=== PATIENT | male | born 1990 | race American Indian/Alaskan Native ===

== ENCOUNTER 2017-05-28 13:08 | Emergency (ER) | payer SELFPAY ==
[2017-05-28 13:40] VITALS: BP 123/84
[2017-05-28] MEDS ORDERED: XYLOCAINE 1% 20 mL INFILTRATI ONE (17:56)
[2017-05-28] MEDS ORDERED: XYLOCAINE 1% MPF 5 mL ONE (18:00)
--- NOTE | 2017-05-28 18:23 | Emergency Department Report ---
- General Chief complaint: Skin/Abscess/Foreign Body Stated complaint: ABSCESS Time Seen by Provider: 05/28/17 17:56 Source: patient Mode of arrival: Ambulatory Limitations: No Limitations - History of Present Illness Initial comments: 26-year-old male no past medical history presents with a boil underneath right armpit for 3 days. Patient denies fevers chills. Visible abscess underlying right axilla. Maximally was sized walnut. States he has had these in the past. Awake alert and oriented 3 not in acute distress. it is painful to palpation. MD complaint: abscess/boil Onset/Timin -: days(s) Location: RUE (underneath right axilla) Severity: moderate Severity scale (0 -10): 7 Quality: aching Consistency: constant Improves with: none Context: none Treatments Prior to Arrival: none - Related Data Previous Rx's Medication Instructions Recorded Last Taken Type Acetaminophen/Codeine [Tylenol 1 tab PO Q6H PRN #2 tab 05/28/17 Unknown Rx /Codeine # 3 tab] Ibuprofen [Motrin] 600 mg PO Q8H PRN #20 tablet 05/28/17 Unknown Rx Sulfamethoxazole/Trimethoprim 1 each PO BID #14 tablet 05/28/17 Unknown Rx [Bactrim DS TAB] Allergies Allergy/AdvReac Type Severity Reaction Status Date / Time No Known Allergies Allergy Unverified 05/28/17 13:40 Abscess Boil HPI - HPI Chief Complaint: Skin/Abscess/Foreign Body Stated Complaint: ABSCESS Time Seen by Provider: 05/28/17 17:56 Home Medications: Previous Rx's Medication Instructions Recorded Last Taken Type Acetaminophen/Codeine [Tylenol 1 tab PO Q6H PRN #2 tab 05/28/17 Unknown Rx /Codeine # 3 tab] Ibuprofen [Motrin] 600 mg PO Q8H PRN #20 tablet 05/28/17 Unknown Rx Sulfamethoxazole/Trimethoprim 1 each PO BID #14 tablet 05/28/17 Unknown Rx [Bactrim DS TAB] Allergies/Adverse Reactions: Allergies Allergy/AdvReac Type Severity Reaction Status Date / Time No Known Allergies Allergy Unverified 05/28/17 13:40 ED Review of Systems ROS: Stated complaint: ABSCESS Other details as noted in HPI Constitutional: denies: chills, fever Eyes: denies: eye pain, eye discharge, vision change ENT: denies: ear pain, throat pain Respiratory: denies: cough, shortness of breath, wheezing Cardiovascular: denies: chest pain, palpitations Endocrine: no symptoms reported Gastrointestinal: denies: abdominal pain, nausea, diarrhea Genitourinary: denies: urgency, dysuria Musculoskeletal: denies: back pain, joint swelling, arthralgia Skin: as per HPI. denies: rash, lesions Neurological: denies: headache, weakness, paresthesias Psychiatric: denies: anxiety, depression Hematological/Lymphatic: denies: easy bleeding, easy bruising ED Past Medical Hx - Past Medical History Previous Medical History?: No - Surgical History Past Surgical History?: No - Social History Smoking Status: Current Every Day Smoker Substance Use Type: None - Medications Home Medications: Home Medications Medication Instructions Recorded Confirmed Last Taken Type Acetaminophen/Codeine [Tylenol 1 tab PO Q6H PRN #2 tab 05/28/17 Unknown Rx /Codeine # 3 tab] Ibuprofen [Motrin] 600 mg PO Q8H PRN #20 tablet 05/28/17 Unknown Rx Sulfamethoxazole/Trimethoprim 1 each PO BID #14 tablet 05/28/17 Unknown Rx [Bactrim DS TAB] ED Physical Exam - General Limitations: No Limitations General appearance: alert, in no apparent distress - Head Head exam: Present: atraumatic, normocephalic - Eye Eye exam: Present: normal appearance - ENT ENT exam: Present: mucous membranes moist - Neck Neck exam: Present: normal inspection - Respiratory Respiratory exam: Present: normal lung sounds bilaterally. Absent: respiratory distress - Cardiovascular Cardiovascular Exam: Present: regular rate, normal rhythm. Absent: systolic murmur, diastolic murmur, rubs, gallop - GI/Abdominal GI/Abdominal exam: Present: soft, normal bowel sounds - Rectal Rectal exam: Present: deferred - Extremities Exam Extremities exam: Present: normal inspection - Back Exam Back exam: Present: normal inspection - Neurological Exam Neurological exam: Present: alert, oriented X3, CN II-XII intact, normal gait - Psychiatric Psychiatric exam: Present: normal affect, normal mood - Skin Skin exam: Present: warm, dry, intact, normal color. Absent: rash - Expanded Skin Exam Expanded Type of lesion: Present: abscess (abscess approximately 3 cm in diameter right axilla) ED Course Vital Signs 05/28/17 13:38 Temperature 98.6 F Pulse Rate 90 Respiratory 16 Rate Blood Pressure 123/84 O2 Sat by Pulse 100 Oximetry - I & D Right Shoulder Type of Procedure: Simple Site: right axilla Blade Size: 11 I & D Procedure: betadine prep, gauze wick placed Progress: Good local anesthesia achieved using lidocaine. Single stab incision made with mild amount appear to drainage. Manual decompression of abscess. Minimal bleeding, procedure tolerated well. Approximately 3 inches of quarter-inch gauze placed and swelling. With 4 x 4 gauze afterward. ED Medical Decision Making - Medical Decision Making A/P: Right axillary abscess 1-Motrin when necessary 2-course of Bactrim 3-advised patient to return to the ED for reaccumulation of abscess. I advised patient to remove the packing from wound site within 12-24 hours. 4-sheet advised to return to the ED for fevers chills nausea vomiting or spit of erythema. Critical care attestation.: If time is entered above; I have spent that time in minutes in the direct care of this critically ill patient, excluding procedure time. ED Disposition Clinical Impression: Abscess Disposition: DC-01 TO HOME OR SELFCARE Is pt being admited?: No Does the pt Need Aspirin: No Condition: Stable Instructions: Abscess (ED), Abscess Incision and Drainage (ED) Prescriptions: Acetaminophen/Codeine [Tylenol /Codeine # 3 tab] 1 tab PO Q6H PRN #2 tab PRN Reason: Pain Ibuprofen [Motrin] 600 mg PO Q8H PRN #20 tablet PRN Reason: Pain Sulfamethoxazole/Trimethoprim [Bactrim DS TAB] 1 each PO BID #14 tablet Referrals: [facility] [Provider Group] - 3-5 Days Forms: Accompanied Note, Work/School Release Form(ED) Time of Disposition: 18:29
[2017-05-28] MEDS ORDERED: TYLENOL #3 PO ONE (18:31)
== END 2017-05-28 18:43 | disposition home or self-care (01) ==
LOC: ED 13:08
DX: L02.411 Cutaneous abscess of right axilla (principal); F17.200 Nicotine dependence, unspecified, uncomplicated
CPT/HCPCS: 99282

== ENCOUNTER 2017-08-01 10:12 | Emergency (ER) | payer OTHER ==
[2017-08-01 10:24] VITALS: BP 127/84
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
== END 2017-08-01 10:54 | disposition home or self-care (01) ==
LOC: ED 10:12
DX: S39.012A Strain of muscle, fascia and tendon of lower back, initial encounter (principal); R51 Headache; V89.2XXA Person injured in unspecified motor-vehicle accident, traffic, initial encounter; Y93.89 Activity, other specified; Y92.89 Other specified places as the place of occurrence of the external cause; Y99.8 Other external cause status
CPT/HCPCS: 99282

== ENCOUNTER 2018-12-26 09:08 | Emergency (ER) | payer SELFPAY ==
[2018-12-26 09:25] VITALS: BP 127/80
[2018-12-26] MEDS ORDERED: IBUPROFEN 800 MG TAB PO ONE (09:53)
--- NOTE | 2018-12-26 09:57 | Emergency Department Report ---
HPI - General Chief Complaint: Upper Respiratory Infection Time Seen by Provider: 12/26/18 09:43 - HPI HPI: 28-year-old male presents to the emergency department with complaint of a 4 to five-day history of a productive cough, fever and chills, body aches, sore throat. He has not taken anything for her symptoms prior to presentation. He is a tobacco smoker. Denies any past medical history. No primary care physician. No recent travel or sick contacts at home. ED Past Medical Hx - Past Medical History Previous Medical History?: No - Surgical History Past Surgical History?: No - Social History Smoking Status: Unknown if ever smoked Substance Use Type: None - Medications Home Medications: Home Medications Medication Instructions Recorded Confirmed Last Taken Type Acetaminophen/Codeine [Tylenol 1 tab PO Q6H PRN #2 tab 05/28/17 Unknown Rx /Codeine # 3 tab] Ibuprofen [Motrin] 600 mg PO Q8H PRN #20 tablet 05/28/17 Unknown Rx Sulfamethoxazole/Trimethoprim 1 each PO BID #14 tablet 05/28/17 Unknown Rx [Bactrim DS TAB] Cyclobenzaprine [Flexeril] 10 mg PO BID PRN #20 tablet 08/01/17 Unknown Rx Menthol/Camphor [[place] 1 applicatio TP TID PRN #1 tube 08/01/17 Unknown Rx Ointment] Naproxen [Naprosyn] 500 mg PO BID PRN #30 tablet 08/01/17 Unknown Rx guaiFENesin/CODEINE [Robitussin AC] 5 ml PO Q8H PRN #100 ml 12/26/18 Unknown Rx ED Review of Systems ROS: Stated complaint: COUGH/BODY PAIN/FEVER Other details as noted in HPI Constitutional: chills, fever Eyes: denies: eye pain, vision change ENT: throat pain. denies: ear pain Respiratory: cough. denies: shortness of breath Cardiovascular: denies: palpitations, edema Gastrointestinal: denies: abdominal pain, vomiting Genitourinary: denies: dysuria, discharge Musculoskeletal: myalgia. denies: joint swelling Skin: denies: rash, lesions Neurological: denies: weakness, numbness Physical Exam - Physical Exam Vital Signs: Vital Signs 12/26/18 09:24 Temperature 100.2 F H Pulse Rate 97 H Respiratory 16 Rate Blood Pressure 127/80 O2 Sat by Pulse 97 Oximetry Physical Exam: GENERAL: The patient is well-developed well-nourished. HENT: Normocephalic. Atraumatic. Patient has moist mucous membranes. Patient has some mild tonsillar hypertrophy and erythema but no exudates. EYES: Extraocular motions are intact. Pupils equal reactive to light bilaterally. NECK: Supple. Trachea is midline. CHEST/LUNGS: Clear to auscultation. A productive sounding cough is heard during examination. No tachypnea or accessory muscle use. There is no respiratory distress noted. HEART/CARDIOVASCULAR: Regular. There is no tachycardia. There is no murmur. ABDOMEN: Abdomen is soft, nontender. Patient has normal bowel sounds. There is no abdominal distention. SKIN: Skin is warm and dry. NEURO: The patient is awake, alert, and oriented. The patient is cooperative. The patient has no focal neurologic deficits. Normal speech. MUSCULOSKELETAL: There is no tenderness or deformity. There is no evidence of acute injury. ED Course Vital Signs 12/26/18 09:24 Temperature 100.2 F H Pulse Rate 97 H Respiratory 16 Rate Blood Pressure 127/80 O2 Sat by Pulse 97 Oximetry ED Medical Decision Making - Radiology Data Radiology results: image reviewed interpreted by me: Chest x-ray does not show any acute process. There are no pleural effusions, obvious pneumonia and there is no pneumothorax. - Medical Decision Making This patient presents with a 4 to five-day history of sore throat, productive cough, fever, body aches. Chest x-ray does not show any pneumonia or any other acute process. Negative on rapid strep. Vital signs stable throughout his ED course. He appears consistent with a viral upper respiratory infection. We discussed using Tylenol and ibuprofen for fever control. He has been given some Robitussin-AC for his cough. He will follow up with primary care and return to the ER with any worsening of his symptoms or any acute distress. - Differential Diagnosis pneumonia, viral URI, pharyngitis, strep Critical Care Time: No Critical care attestation.: If time is entered above; I have spent that time in minutes in the direct care of this critically ill patient, excluding procedure time. ED Disposition Clinical Impression: Viral upper respiratory infection Disposition: DC-01 TO HOME OR SELFCARE Is pt being admited?: No Condition: Stable Instructions: Fever in Adults (ED), Upper Respiratory Infection (ED) Additional Instructions: Please follow-up with a primary care physician in the next few days. Return to the emergency Department with any worsening of your symptoms or any acute distress. You can use Tylenol every 4-6 hours and ibuprofen every 6-8 hours, using weight-based dosing on the back of the bottle, as needed for fever or body aches. You have been prescribed a medication that is sedating and therefore should not be taken prior to driving, working, and responsible for children and in no way should be mixed with alcohol of any quantity. Prescriptions: guaiFENesin/CODEINE [Robitussin AC] 5 ml PO Q8H PRN #100 ml PRN Reason: Cough Referrals: CAESAR PELAEZ MD [Staff Physician] - 2-3 Days [facility] [Outside] - 2-3 Days Forms: Work/School Release Form(ED) Time of Disposition: 11:01
--- NOTE | 2018-12-26 10:12 | XRay Report ---
CHEST 2 VIEWS INDICATION / CLINICAL INFORMATION: cough with fever. COMPARISON: None available. FINDINGS: SUPPORT DEVICES: None. HEART / MEDIASTINUM: No significant abnormality. LUNGS / PLEURA: No significant pulmonary or pleural abnormality. No pneumothorax. ADDITIONAL FINDINGS: No significant additional findings. IMPRESSION: 1. No acute findings. Signer Name: Jus Sands MD Signed: 12/26/2018 10:08 AM Workstation Name: [id number]
== END 2018-12-26 11:08 | disposition home or self-care (01) ==
LOC: ED 09:08
DX: J06.9 Acute upper respiratory infection, unspecified (principal); Z79.1 Long term (current) use of non-steroidal anti-inflammatories (NSAID); Z79.899 Other long term (current) drug therapy
CPT/HCPCS: 71046; 87116; 87430